=== PATIENT | male | born 1995 | race Two or more races ===

== ENCOUNTER 2018-08-23 07:19 | Emergency (ER) | payer BC, OTHER ==
[~2018-08-23] VITALS: Ht 167.6 cm; Wt 65.5 kg
[2018-08-23 08:09] LABS: BASOPHILS # (AUTO) 0.03 x10^3/uL (0-0.1); BASOPHILS % (AUTO) 1 % (0-1); EOSINOPHILS # (AUTO) 0.31 x10^3/uL (0-0.4); EOSINOPHILS % (AUTO) 5 % (1-7); LYMPHOCYTES # (AUTO) 2.32 x10^3/uL (1-3.4); LYMPHOCYTES % (AUTO) 40 % (22-44); MD NO; MEAN CORPUSCULAR HGB CONC 31.7 g/dL (33.2-36.2); MEAN CORPUSCULAR VOLUME 63.1 fL (81-97); MEAN PLATELET VOLUME 8.4 fL (7.4-10.4); MONOCYTES # (AUTO) 0.45 x10^3/uL (0.2-0.8); MONOCYTES % (AUTO) 8 % (2-9); NEUTROPHILS # (AUTO) 2.74 x10^3/uL (1.8-6.8); NEUTROPHILS % (AUTO) 47 % (42-75); PLATELET COUNT 268 x10^3/uL (130-400); RED BLOOD COUNT 6.08 x10^6/uL (4.38-5.82); RED CELL DISTRIBUTION WIDTH 16.7 % (9.4-14.8)
[2018-08-23 08:17] LABS: ALBUMIN 4.5 g/dL (3.4-5.0); ANION GAP 8 mmol/L (5-15); CALCIUM 8.6 mg/dL (8.5-10.1); CHLORIDE 107 mmol/L (98-107); CREATININE 0.75 mg/dL (0.7-1.3); T4 (THYROXINE) 8.5 mcg/dL (4.5-12.1)
[2018-08-23 08:54] VITALS: BP 121/57
== END 2018-08-23 08:56 | disposition home or self-care (01) ==
LOC: ED 08:45
DX: R00.2 Palpitations (principal)
CPT/HCPCS: 36415; 71045; 80048; 82040; 84436; 84443; 85025; 93005; 99285

== ENCOUNTER 2018-11-05 11:53 | Emergency (ER) | payer SELFPAY ==
[~2018-11-05] VITALS: Ht 167.6 cm; Wt 63.8 kg
[2018-11-05 12:48] LABS: RAPID INFLUENZA A Negative (Negative); RAPID INFLUENZA B Negative (Negative)
[2018-11-05 13:32] VITALS: BP 131/86
--- NOTE | 2018-11-05 13:32 | NUR ---
Patient/Caregiver given discharge instructions and they have confirmed that they understand the instructions. Patient ambulatory with steady gait.
== END 2018-11-05 13:35 | disposition home or self-care (01) ==
LOC: ED 12:07
DX: J06.9 Acute upper respiratory infection, unspecified (principal); B34.9 Viral infection, unspecified
CPT/HCPCS: 71046; 87400; 99283

== ENCOUNTER 2021-01-24 00:24 | Emergency (ER) | payer OTHER ==
[~2021-01-24] VITALS: Ht 167.6 cm; Wt 70.5 kg
[2021-01-24 01:06] VITALS: BP 120/80
== END 2021-01-24 01:32 | disposition home or self-care (01) ==
LOC: ED 01:26
DX: Z77.21 Contact with and (suspected) exposure to potentially hazardous body fluids (principal)
CPT/HCPCS: 36415; 86705; 86706; 86803; 87340; 87806; 99283; G0475